=== PATIENT | male | born 1970 | race Caucasian/White ===

== ENCOUNTER 2017-02-20 23:44 | Emergency (ER) | payer MEDICARE, MEDICAID ==
[2017-02-20] MEDS ORDERED: Sodium Chloride 0.9% 1,000 ML IV SCH (23:45)
[2017-02-20] MEDS ORDERED: Nitroglycerin 0.4 MG Tab.SL SL ONE (23:47)
[2017-02-20] MEDS ORDERED: Morphine 2 MG/ML Syringe IVPUSH ONE (23:47)
[2017-02-20] MEDS ORDERED: Sodium Chloride 0.9% 10 ML Syringe FLUSH PRN (23:47)
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
[2017-02-21 00:45] LABS: CHLORIDE,CL 106 mmol/L (98-107); SODIUM,NA 143 mmol/L (136-145)
[2017-02-21] MEDS ORDERED: LORazepam 2 MG/ML MDV IVPUSH ONE (00:45)
[2017-02-21 01:04] VITALS: BP 145/94
[2017-02-21] MEDS ORDERED: LORazepam 2 MG/ML MDV ONE (01:37)
== END 2017-02-21 01:34 | disposition short-term general hospital (02) ==
LOC: VM.ED 23:44
DX: R07.9 Chest pain, unspecified (principal); Z79.899 Other long term (current) drug therapy
CPT/HCPCS: 36415; 71010; 80053; 82550; 82553; 83735; 84100; 84484; 85025; 93005; 96361; 96374; 96375; 99285; J2060; J2270; J7030; 99284-GF

== ENCOUNTER 2017-03-26 20:27 | Emergency (ER) | payer MEDICARE, MEDICAID ==
[2017-03-26] MEDS ORDERED: Sodium Chloride 0.9% 10 ML Syringe FLUSH PRN (20:54)
[2017-03-26] MEDS ORDERED: LORazepam 2 MG/ML MDV IVPUSH ONE (20:54)
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
[2017-03-26] MEDS ORDERED: Lidocaine 1% with EPINEPHrine 1:100,000 20 ML MDV INFILT PRN (21:31)
[2017-03-26] MEDS ORDERED: Lidocaine 1% 30 ML SDV INJECT ONE (22:03)
[2017-03-27 05:59] VITALS: BP 143/95
== END 2017-03-26 22:57 | disposition home or self-care (01) ==
LOC: VM.ED 20:27
DX: S09.90XA Unspecified injury of head, initial encounter (principal); S01.411A Laceration without foreign body of right cheek and temporomandibular area, initial encounter; S01.112A Laceration without foreign body of left eyelid and periocular area, initial encounter; S00.31XA Abrasion of nose, initial encounter; K21.9 Gastro-esophageal reflux disease without esophagitis; G43.909 Migraine, unspecified, not intractable, without status migrainosus; F41.9 Anxiety disorder, unspecified; F32.9 Major depressive disorder, single episode, unspecified; F17.210 Nicotine dependence, cigarettes, uncomplicated; V89.2XXA Person injured in unspecified motor-vehicle accident, traffic, initial encounter; Z79.899 Other long term (current) drug therapy; Z91.030 Bee allergy status; Z88.6 Allergy status to analgesic agent
CPT/HCPCS: 12013; 12014; 96374; 99284; J2060